=== PATIENT | female | born 1995 | race Caucasian/White ===

== ENCOUNTER 2018-04-22 04:56 | Emergency (ER) | payer BC ==
[2018-04-22] MEDS ORDERED: Sodium Chloride 0.9% 1,000 ML IV ONE ×2 (05:37→06:24)
[2018-04-22] MEDS ORDERED: Ondansetron 4 MG/2 ML SDV IV ONE (05:37)
--- NOTE | 2018-04-22 05:49 | EDM.PDOC ---
<Israel Ayala - Last Filed: 04/22/18 05:45> ED HPI GENERAL MEDICAL PROBLEM - General Chief Complaint: Abdominal Pain Time Seen by Provider: 04/22/18 05:45 Source of Information: Reports: Patient, RN Notes Reviewed History Limitations: Reports: No Limitations - History of Present Illness INITIAL COMMENTS - FREE TEXT/NARRATIVE: pt sent from OB for vomiting. mother states pt @ 25 weeks. mother states she herself also had this during her . Abdominal Pain Score (Numeric/FACES): 8 - Related Data Allergies Allergy/AdvReac Type Severity Reaction Status Date / Time amoxicillin Allergy Rash Verified 04/22/18 05:29 Sulfa (Sulfonamide Allergy Rash Verified 04/22/18 05:29 Antibiotics) Home Meds: Home Meds . [No Known Home Meds] 04/22/18 [History] Social & Family History - Tobacco Use Smoking Status *Q: Never Smoker Second Hand Smoke Exposure: No - Caffeine Use Caffeine Use: Reports: Coffee - Recreational Drug Use Recreational Drug Use: No ED ROS GENERAL - Review of Systems Review Of Systems: ROS reveals no pertinent complaints other than HPI. ED EXAM, GI/ABD - Physical Exam Exam: See Below Exam Limited By: No Limitations General Appearance: Alert, WD/WN, Mild Distress, Active Emesis Ears: Hearing Grossly Normal Throat/Mouth: Normal Voice, No Airway Compromise Head: Atraumatic Neck: Non-Tender, Full Range of Motion Respiratory/Chest: No Respiratory Distress Cardiovascular: Regular Rate, Rhythm GI/Abdominal Exam: Tender, Other (epiG discomfort). No: Distended, Guarding, Rigid, Rebound Neurological: Alert, Oriented, Normal Cognition, Normal Gait, No Motor/Sensory Deficits Psychiatric: Other (upset) Skin Exam: Warm, Dry, Normal Color Lymphatic: No Adenopathy Course - Vital Signs Last Recorded V/S: Last Vital Signs Temp 98.5 F 04/22/18 05:29 Pulse 56 L 04/22/18 05:29 Resp 16 04/22/18 05:29 BP 100/65 04/22/18 05:29 Pulse Ox 100 04/22/18 05:29 - Orders/Labs/Meds Labs: Laboratory Tests 04/22/18 04/22/18 Range/Units 05:31 05:31 WBC 10.8 H (5.0-10.0) 10^3/uL RBC 3.37 L (4.2-5.4) 10^6/uL Hgb 10.5 L (12.0-16.0) g/dL Hct 30.4 L (37.0-47.0) % MCV 90.2 (80-100) fL MCH 31.2 (27.0-34.0) pg MCHC 34.5 (33.0-35.0) g/dL Plt Count 176 (150-450) 10^3/uL Neut % (Auto) 86.4 H (42.2-75.2) % Lymph % (Auto) 9.8 L (20.5-50.1) % [place] % (Auto) 3.6 (2-8) % Eos % (Auto) 0.1 L (1.0-3.0) % Baso % (Auto) 0.1 (0.0-1.0) % Sodium 135 (135-145) mmol/L Potassium 3.4 L (3.6-5.0) mmol/L Chloride 105 (101-111) mmol/L Carbon Dioxide 21.0 (21.0-31.0) mmol/L Anion Gap 12.4 BUN 6 L (7-18) mg/dL Creatinine 0.6 (0.6-1.3) mg/dL Est Cr Clr Drug Dosing 121.66 mL/min Estimated GFR (MDRD) > 60 BUN/Creatinine Ratio 10.00 Glucose 89 (74-105) mg/dL Calcium 8.3 L (8.4-10.2) mg/dl Total Bilirubin 0.5 (0.2-1.0) mg/dL AST 19 (10-42) IU/L ALT 13 (10-60) IU/L Alkaline Phosphatase 43 (42-121) IU/L Total Protein 6.7 (6.7-8.2) g/dl Albumin 3.2 (3.2-5.5) g/dl Globulin 3.5 Albumin/Globulin Ratio 0.91 Meds: Medications Discontinued Medications Generic Name Dose Route Start Last Admin Trade Name Freq PRN Reason Stop Dose Admin Sodium Chloride 1,000 mls @ 999 mls/hr 04/22/18 05:37 04/22/18 05:39 Normal Saline IV 04/22/18 06:37 999 mls/hr .BOLUS ONE Administration Sodium Chloride 1,000 mls @ 999 mls/hr 04/22/18 06:24 04/22/18 06:31 Normal Saline IV 04/22/18 07:24 999 mls/hr .BOLUS ONE Administration Ondansetron HCl 4 mg 04/22/18 05:37 04/22/18 05:40 Zofran IV 04/22/18 05:38 4 mg ONETIME ONE Administration Promethazine HCl 25 mg 04/22/18 06:24 04/22/18 06:32 Phenergan IM 04/22/18 06:25 25 mg ONETIME ONE Administration Departure - Departure Disposition: Home, Self-Care 01 Clinical Impression: Hyperemesis gravidarum - Discharge Information Instructions: Eating Plan for Hyperemesis Gravidarum, Morning Sickness, Easy-to -Read, Hyperemesis Gravidarum Referrals: Carlos Ordonez MD [Primary Care Provider] - Forms: ED Department Discharge Additional Instructions: Sips of fluids frequently Follow up with your primary care facility RX: Metoclopramide <Shani More - Last Filed: 04/22/18 08:26> Departure - Departure Time of Disposition: 08:18 Condition: Fair - Discharge Information *PRESCRIPTION DRUG MONITORING PROGRAM REVIEWED*: No *COPY OF PRESCRIPTION DRUG MONITORING REPORT IN PATIENT SHAUNA: No
[2018-04-22 05:58] LABS: ANION GAP 12.4; CHLORIDE,CL 105 mmol/L (101-111); SODIUM,NA 135 mmol/L (135-145)
[2018-04-22] MEDS ORDERED: Promethazine 25 MG/ML SDV IM ONE (06:24)
== END 2018-04-22 08:36 | disposition home or self-care (01) ==
LOC: DL.ED 04:56 → DL.OBCHECK 04:56 → EDSTATUS 05:25 → DL.ED 08:36
DX: O21.0 Mild hyperemesis gravidarum (principal); Z3A.25 25 weeks gestation of pregnancy; Z88.1 Allergy status to other antibiotic agents; Z88.2 Allergy status to sulfonamides
CPT/HCPCS: 36415; 80053; 85025; 96361; 96372; 96374; 99284; J2405; J2550; J7030

== ENCOUNTER 2019-05-19 19:56 | Emergency (ER) | payer BC ==
[2019-05-19] MEDS ORDERED: Ondansetron 4 MG/2 ML SDV IV ONE (20:58)
[2019-05-19] MEDS ORDERED: Sodium Chloride 0.9% 1,000 ML IV ONE (21:01)
--- NOTE | 2019-05-19 21:04 | EDM.PDOC ---
ED HPI GENERAL MEDICAL PROBLEM - General Chief Complaint: Gastrointestinal Problem Stated Complaint: HEAD ACHE, STOMACH PAIN, WEAK Time Seen by Provider: 05/19/19 21:02 Source of Information: Reports: Patient History Limitations: Reports: No Limitations - History of Present Illness INITIAL COMMENTS - FREE TEXT/NARRATIVE: onset vomiting & abd pain since noon. ate hash brown and eggs prior. no diarrhoea. 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 Vomited after ingesting Middle Abdomen Pain Score (Numeric/FACES): 10 - Related Data Allergies Allergy/AdvReac Type Severity Reaction Status Date / Time amoxicillin Allergy Unknown Rash Verified 05/19/19 20:25 Sulfa (Sulfonamide Allergy Unknown Rash Verified 05/19/19 20:25 Antibiotics) Home Meds: Home Meds Norgestimate-Ethinyl Estradiol [Annita 0.25-0.035 mg Tablet] 1 tab PO DAILY [History] Past Medical History - Past Health History Medical/Surgical History: Denies Medical/Surgical History HEENT History: Reports: None Cardiovascular History: Reports: None Respiratory History: Reports: None Gastrointestinal History: Reports: None Genitourinary History: Reports: None 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: Musculoskeletal History: Reports: None Neurological History: Reports: Migraines Psychiatric History: Reports: Anxiety Endocrine/Metabolic History: Reports: None Hematologic History: Reports: None Immunologic History: Reports: None Oncologic (Cancer) History: Reports: None Dermatologic History: Reports: None - Infectious Disease History Infectious Disease History: Reports: None - Past Surgical History Head Surgeries/Procedures: Reports: None HEENT Surgical History: Reports: Oral Surgery Other HEENT Surgeries/Procedures: wisdom teeth Neurological Surgical History: Reports: None Social & Family History - Family History Family Medical History: Noncontributory Cardiac: Reports: Hypertension Endocrine/Metabolic: Reports: Diabetes, Type I Oncologic: Reports: Breast - Tobacco Use Smoking Status *Q: Never Smoker Second Hand Smoke Exposure: No - Caffeine Use Caffeine Use: Reports: Coffee, Soda, Tea - Recreational Drug Use Recreational Drug Use: No ED ROS GENERAL - Review of Systems Review Of Systems: ROS reveals no pertinent complaints other than HPI. ED EXAM, GI/ABD - Physical Exam Exam: See Below Exam Limited By: No Limitations General Appearance: Alert, WD/WN, Mild Distress, Active Emesis, Other ( discomfort, tearful) Ears: Hearing Grossly Normal Throat/Mouth: Normal Voice, No Airway Compromise Head: Atraumatic Neck: Non-Tender, Full Range of Motion Respiratory/Chest: No Respiratory Distress Cardiovascular: Regular Rate, Rhythm GI/Abdominal Exam: Guarding, Tender, Other (periumb> RLQ & RUQ). No: Distended , Rigid, Rebound Neurological: Alert, Oriented, Normal Cognition, Normal Gait, No Motor/Sensory Deficits Psychiatric: Tearful Skin Exam: Warm, Dry, Normal Color Lymphatic: No Adenopathy Course - Vital Signs Last Recorded V/S: Last Vital Signs Temp 36.6 C 05/19/19 20:27 Pulse 55 L 05/19/19 20:27 Resp 18 05/19/19 20:27 BP 109/63 05/19/19 20:27 Pulse Ox 100 05/19/19 20:27 - Orders/Labs/Meds Labs: Laboratory Tests 05/19/19 05/19/19 05/19/19 Range/Units 20:32 20:32 20:47 WBC 11.9 H (5.0-10.0) 10^3/uL RBC 4.33 (4.2-5.4) 10^6/uL Hgb 12.5 D (12.0-16.0) g/dL Hct 36.1 L (37.0-47.0) % MCV 83.4 (80-100) fL MCH 28.9 (27.0-34.0) pg MCHC 34.6 (33.0-35.0) g/dL Plt Count 222 (150-450) 10^3/uL Neut % (Auto) 92.2 H (42.2-75.2) % Lymph % (Auto) 4.9 L (20.5-50.1) % [place] % (Auto) 2.8 (2-8) % Eos % (Auto) 0.0 L (1.0-3.0) % Baso % (Auto) 0.1 (0.0-1.0) % Sodium (135-145) mmol/L Potassium (3.6-5.0) mmol/L Chloride (101-111) mmol/L Carbon Dioxide (21.0-31.0) mmol/L Anion Gap BUN (7-18) mg/dL Creatinine (0.6-1.3) mg/dL Est Cr Clr Drug Dosing mL/min Estimated GFR (MDRD) BUN/Creatinine Ratio Glucose (74-105) mg/dL Lactic Acid (0.5-2.2) mmol/L Calcium (8.4-10.2) mg/dl Total Bilirubin (0.2-1.0) mg/dL AST (10-42) IU/L ALT (10-60) IU/L Alkaline Phosphatase (42-121) IU/L Total Protein (6.7-8.2) g/dl Albumin (3.2-5.5) g/dl Globulin Albumin/Globulin Ratio Amylase (28-100) U/L Lipase (22-51) U/L Urine Color Yellow (YELLOW) Urine Appearance Clear (CLEAR) Urine pH 5.5 (5.0-9.0) Ur Specific [place] >= 1.030 (1.005-1.030) Urine Protein 30 H (NEGATIVE) Urine Glucose (UA) Negative (NEGATIVE) Urine Ketones >=160 H (NEGATIVE) Urine Occult Blood Negative (NEGATIVE) Urine Nitrite Negative (NEGATIVE) Urine Bilirubin Small H (NEGATIVE) Urine Urobilinogen 0.2 (0.2-1.0) mg/dL Ur Leukocyte Esterase Negative (NEGATIVE) Urine RBC 0-5 /HPF Urine WBC 0-5 (0-5/HPF) /HPF Ur Epithelial Cells Many H (NOT SEEN) /HPF Urine Bacteria Moderate H (0-FEW/HPF) /HPF Urine Mucus Many H (NOT SEEN) /LPF Urine HCG, Qual Negative 05/19/19 05/19/19 05/19/19 Range/Units 20:47 20:47 20:47 WBC (5.0-10.0) 10^3/uL RBC (4.2-5.4) 10^6/uL Hgb (12.0-16.0) g/dL Hct (37.0-47.0) % MCV (80-100) fL MCH (27.0-34.0) pg MCHC (33.0-35.0) g/dL Plt Count (150-450) 10^3/uL Neut % (Auto) (42.2-75.2) % Lymph % (Auto) (20.5-50.1) % [place] % (Auto) (2-8) % Eos % (Auto) (1.0-3.0) % Baso % (Auto) (0.0-1.0) % Sodium 138 (135-145) mmol/L Potassium 3.7 (3.6-5.0) mmol/L Chloride 105 (101-111) mmol/L Carbon Dioxide 22.0 (21.0-31.0) mmol/L Anion Gap 14.7 BUN 12 (7-18) mg/dL Creatinine 0.8 (0.6-1.3) mg/dL Est Cr Clr Drug Dosing 90.47 mL/min Estimated GFR (MDRD) > 60 BUN/Creatinine Ratio 15.00 Glucose 115 H (74-105) mg/dL Lactic Acid 0.9 (0.5-2.2) mmol/L Calcium 8.9 (8.4-10.2) mg/dl Total Bilirubin 1.1 H (0.2-1.0) mg/dL AST 18 (10-42) IU/L ALT 17 (10-60) IU/L Alkaline Phosphatase 46 (42-121) IU/L Total Protein 7.7 (6.7-8.2) g/dl Albumin 4.4 (3.2-5.5) g/dl Globulin 3.3 Albumin/Globulin Ratio 1.33 Amylase 64 (28-100) U/L Lipase 28 (22-51) U/L Urine Color (YELLOW) Urine Appearance (CLEAR) Urine pH (5.0-9.0) Ur Specific [place] (1.005-1.030) Urine Protein (NEGATIVE) Urine Glucose (UA) (NEGATIVE) Urine Ketones (NEGATIVE) Urine Occult Blood (NEGATIVE) Urine Nitrite (NEGATIVE) Urine Bilirubin (NEGATIVE) Urine Urobilinogen (0.2-1.0) mg/dL Ur Leukocyte Esterase (NEGATIVE) Urine RBC /HPF Urine WBC (0-5/HPF) /HPF Ur Epithelial Cells (NOT SEEN) /HPF Urine Bacteria (0-FEW/HPF) /HPF Urine Mucus (NOT SEEN) /LPF Urine HCG, Qual Meds: Medications Discontinued Medications Generic Name Dose Route Start Last Admin Trade Name Freq PRN Reason Stop Dose Admin Hydromorphone HCl 1 mg 05/19/19 23:58 Dilaudid IVPUSH 05/19/19 23:59 ONETIME ONE Sodium Chloride 1,000 mls @ 999 mls/hr 05/19/19 21:01 05/19/19 21:07 Normal Saline IV 05/19/19 22:01 999 mls/hr .BOLUS ONE Administration Iopamidol 75 ml 05/19/19 22:02 05/19/19 22:23 Isovue-300 (61%) IVPUSH 05/19/19 22:03 75 ml ONETIME ONE Administration Morphine Sulfate 2 mg 05/19/19 21:59 05/19/19 22:06 Morphine IVPUSH 05/19/19 22:00 2 mg ONETIME ONE Administration Ondansetron HCl 4 mg 05/19/19 20:58 05/19/19 21:08 Zofran IV 05/19/19 20:59 4 mg ONETIME ONE Administration - Re-Assessments/Exams Free Text/Narrative Re-Assessment/Exam: 05/20/19 00:[address] Whitt surgeon @ who kindly accepted pt. Departure - Departure Time of Disposition: 00:05 Disposition: DC/Tfer to Acute Hospital 02 Condition: Good Clinical Impression: Appendicitis - Discharge Information Forms: Interfacility Transfer EMTALA
[2019-05-19 21:13] LABS: ANION GAP 14.7; CHLORIDE,CL 105 mmol/L (101-111); SODIUM,NA 138 mmol/L (135-145)
[2019-05-19] MEDS ORDERED: Morphine 2 MG/ML Syringe IVPUSH ONE (21:59)
[2019-05-19] MEDS ORDERED: Iopamidol 612 MG/ML 75 ML Bottle IVPUSH ONE (22:02)
[2019-05-19] MEDS ORDERED: HYDROmorphone 1 MG/ML Syringe IVPUSH ONE (23:58)
[2019-05-20] MEDS ORDERED: LORazepam 2 MG/ML Syringe IVPUSH ONE (00:52)
== END 2019-05-20 01:02 ==
LOC: DL.ED 19:56
DX: K37 Unspecified appendicitis (principal); Z88.0 Allergy status to penicillin; Z88.2 Allergy status to sulfonamides
CPT/HCPCS: 36415; 74177; 80053; 81001; 81025; 82150; 83605; 83690; 85025; 96361; 96374; 96375; 99285; J1170; J2060; J2270; J2405; J7030; Q9967

== ENCOUNTER 2020-04-20 21:59 | Inpatient (IN) | payer BC ==
--- NOTE | 2020-04-20 19:49 | PCM.SN.2 ---
- Free Text/Narrative Note: 04/20/2020 Destiny presents for SROM. Hear a pop and felt a gush of clear fluid at 1900. No regular contractions. No blood. Good movement. Normal managed by Dr. Garrido. No other complaints. Reports last delivery 6 hours post ROM and 3 hrs after contractions started. prior vaginal delivery in 2018 at 37+ weeks gestation. Patient's last menstrual period was 08/21/2019 (within days). BERRY is 05/27/2020, by Last Menstrual Period EGA today is 34w5d. Past Medical History: Diagnosis Date Acne Migraine headache Patient Active Problem List Diagnosis Date Noted Maternal anemia in , antepartum, third trimester 03/13/2020 Overview Note: hgb mildly low (10.6) and recommend over the counter iron sulfate 325 mg daily 03/13/2020 care in third trimester 09/30/2019 Anxiety 05/18/2019 Past Surgical History: Procedure Laterality Date LAPAROSCOPY APPENDECTOMY ADULT 05/20/2019 Family History Problem Relation Age of Onset Hypertension Cousin Diabetes Cousin grandparent Breast Cancer Cousin grandparent Anesth Problems Neg Hx Bleeding Prob Neg Hx Clotting Disorder Neg Hx Defects Neg Hx Social History Social History Narrative Lives in [place] recently moved back 05/2018 and lives with Davon Shi. 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 works at [employer] in [place]. Medications: Iron 325mh daily. vitamin daily. TUMS PRN for heartburn. Allergies: Sulfa. Objective: LMP 08/21/2019 (Within Days) BP 122/81, Pulse 117, RR 18, Temp 99.8 General: Alert, pleasant, cooperative. Neck: supple no adenopathy. Heart: regular no murmur. Lungs: CTA bilaterally. Abd: Soft, non-tender. Uterine size consistent with dates. FHT 155. Category 1. Contractions Q 1.5-2 mins. Cervix: 3cm/50%/-1, fluid clear. Neurological: No focal neurological deficits. Deep tendon reflexes 2+ and equal. No clonus. Psychiatric: Alert and oriented x3. Mood and affect appropriate. Happy about the . Skin: warm, dry, appropriate for race. Covid: negative Amnisure: positive UA: Protein 30. Trace blood. Negative LE and Nitrates. CBC: WBCs 17.6, Hgb 12.2, Plts 187. US Per tech: HARSHA 15. Cephalic. Anterior placenta. Assessment: 24 y.o. at 34w5d presenting for new OB visit. 1. premature rupture of membranes. 2. Anemia of . 3. Anxiety Plan: IVF, betamethasone, PCN started. GBS, amnisure, CBC, Covid and US obtained. Transfer to [place] is not appropriate since she has a history of quick labor and shalom every 1.5-2 minutes. Ambulance not available for at least [address] Lopez who agrees with my treatment and plan for need to deliver locally with NICU called for delivery to attend to the baby.
[2020-04-20] MEDS: Lactated Ringers 1,000 ML IV ONE ×2 (20:00→21:13)
--- NOTE | 2020-04-20 20:24 | US ---
PROCEDURE INFORMATION: Exam: US , Limited Exam date and time: 04/20/2020 7:55 PM Age: 24 years old Clinical indication: Lmp or gestational age (in weeks): 34w 5d; Antepartum complications; Other: ? Prom; ; Additional info: R/O prom TECHNIQUE: Imaging protocol: Real-time ultrasound of the maternal uterus with image documentation. Exam focused on the clinical indication. COMPARISON: CT Abdomen Pelvis w Cont 05/19/2019 10:42 PM FINDINGS: Gestation: Single intrauterine . heart rate: heart rate 167-181 bpm. Presentation: Cephalic presentation. Placenta: Posterior placenta. Amniotic fluid: Amniotic fluid volume normal. Amniotic fluid index: HARSHA 15.8 cm. IMPRESSION: Normal fluid volume.
[~2020-04-20 21:59] MED LIST: Acetaminophen 325 MG Tab PO PRN; Betamethasone Acetate/Betamethasone Sod Phosphate 30 MG/5 ML MDV IM ONE; Carboprost Tromethamine 250 MCG/1 ML Amp IM PRN; Lactated Ringers 1,000 ML IV ONE; Lactated Ringers 1,000 ML IV SCH; Lactated Ringers 500 ML IV SCH; Lidocaine 1% 30 ML SDV INJECT PRN; Methylergonovine 0.2 MG/1 ML Amp IM PRN; Misoprostol 400 MCG (4 X 100 MCG TAB) RECTAL PRN; Naloxone 2 MG/2 ML Syringe IVPUSH PRN; Ondansetron 4 MG/2 ML SDV IVPUSH PRN; Oxytocin/Normal Saline 30 UNIT/500 ML BAG IV SCH; Penicillin G Potassium 5 MILLUNITS in Sodium Chloride 0.9% 100 ML IV ONE; Promethazine 25 MG/ML SDV IM PRN; Sodium Chloride 0.9% 1,000 ML IV SCH; Sodium Chloride 0.9% 10 ML Syringe FLUSH PRN; Tranexamic Acid 1,000 MG in Sodium Chloride 0.9% 100 ML IV PRN; ePHEDrine 50 MG/ML SDV IVPUSH PRN; fentaNYL 100 MCG/2 ML SDV IVPUSH PRN
[2020-04-20] MEDS ORDERED: fentaNYL 100 MCG/2 ML SDV ONE (23:21)
[2020-04-20] MEDS ORDERED: EPINEPHrine 1 MG/1 ML Amp ONE (23:21)
--- NOTE | 2020-04-20 23:53 | PCM.PRNOTE ---
- Free Text/Narrative Note: Requested to provide analgesia to full term patient in severe pain. Upon entering the room, patient is sitting on edge of bed complaining of severe abdominal/pelvic pain and discomfort. Procedure was discussed with patient including adverse outcomes and expectations. Pt consented to analgesia, SAB/IT. Pt placed into a proper sitting position. Landmarks for SAB/IT were identified and marked. Hands were washed and appropriate PPE was applied. Back was prepped with betadine x3. A sterile, transparent, fenestrated drape was applied. Excess betadine was removed. Using 3 mL of a 1% lidocaine solution, a skin wheel was placed at the L2/L3 interspace. A 24 ga (4 inch) Pencan spinal needle was inserted until positive for CSF. Negative for heme or paresthesias. Injected fentanyl 30 mcg, sufentanil 25 mcg, and 7.5 mg of a 0.75% bupivacaine solution with an epi wash. Pt was placed left lateral position for approximately 20 minutes. There were zero complications or adverse outcomes. Will continue to monitor. Procedure Date & Time: 04/20/2020 [id number]
[2020-04-21] MEDS ORDERED: Penicillin G Potassium 3 MILLUNITS in Sodium Chloride 0.9% 100 ML IV ONE ×2
[2020-04-21] MEDS ORDERED: Simethicone 80 MG Tab.Chew PO PRN (02:02)
[2020-04-21] MEDS ORDERED: Ibuprofen 800 MG Tab PO PRN (02:02)
[2020-04-21] MEDS ORDERED: Benzocaine/Menthol 20%-0.5% Spray 56 GM Canister TOP PRN (02:02)
[2020-04-21] MEDS ORDERED: Docusate Sodium 100 MG Cap PO PRN (02:02)
--- NOTE | 2020-04-21 03:01 | DEL ---
DATE: 04/21/2020 PREPROCEDURE DIAGNOSES: 1. rupture of membranes. 2. Intrauterine at 34-6/7 weeks' gestation. 3. Anemia of . 4. Group B strep status unknown. 5. Anxiety history. POSTPROCEDURE DIAGNOSES: 1. rupture of membranes. 2. Intrauterine at 34-6/7 weeks' gestation. 3. Anemia of . 4. Group B strep status unknown. 5. Anxiety history. 6. Status post spontaneous vaginal delivery without complications. BRIEF HISTORY: A 24-year-old female reported to the hospital reporting a large gush of clear amniotic fluid and hearing a pop at around 1900 hours on 04/20/2020. She was confirmed to have spontaneous rupture of membranes. COVID test negative. Admission hemoglobin of 12.2, platelets of 187. Urinalysis negative for urinary tract infection. Positive AmniSure. Ultrasound with baby being cephalic and HARSHA of 15. History of delivery with her last child 6 hours after spontaneous rupture and she was shalom every minute and a half to 2 minutes and 3 cm dilated. I discussed the case with Dr. Lopez, INSTALLATION DRAFTER on-call at [place], and she agreed that transfer of this patient was too high risk given her history of fast labor, so the patient remained here at [facility] and was given a dose of betamethasone, started on penicillin and IV fluids, and allowed to progress through labor. She had nitrox early on for pain relief followed by 1 dose of fentanyl and an intrathecal. She went on to an uncomplicated vaginal delivery as outlined below. Intensive Care Nursery team was called and present at time of delivery to attend to the baby. DETAILS: With the patient in dorsal lithotomy position, she delivered a viable male over intact perineum. Baby had a strong lusty cry and was dried, stimulated, and placed upon mother's abdomen. After a delay, 3-vessel umbilical cord was doubly clamped and cut, and cord blood sample obtained, and will be sent to the hospital that the baby is being transferred to. Placenta was delivered by gentle cord traction and concomitant uterine massage, inspected, and intact. Appeared mature with no obvious problems. Labia and vagina were inspected and there were some superficial lacerations on the labia and a small abrasion in the perineum, none of which needed repair and all were hemostatic. The patient had tolerated the delivery well and there were no complications. Baby's scores are 9 and 9. His weight 3100 g, 6 pounds 13 ounces, head circumference 13.2 inches, chest 12.8 inches, and length 20 inches. ESTIMATED BLOOD LOSS: 200 mL. DISPOSITION: Mother to remain here at the hospital until her intrathecal wears off and she is voiding and ambulating well after which time I anticipate she will be getting discharged to go to [place] to be with her baby. She does plan on . [facility] /[id number] MTDD
[2020-04-21] MEDS ORDERED: diphenhydrAMINE 25 MG Tab PO ONE (03:05)
[2020-04-21] MEDS ORDERED: Betamethasone Acetate/Betamethasone Sod Phosphate 30 MG/5 ML MDV IM ONE (06:29)
[2020-04-21] MEDS ORDERED: fentaNYL 100 MCG/2 ML SDV ITHECAL ONE (06:29)
[2020-04-21] MEDS ORDERED: EPINEPHrine 1 MG/1 ML Amp ONE (06:29)
[2020-04-21] MEDS ORDERED: Prenatal Multivitamin with Calcium/Folic Acid/Iron Tab PO SCH (09:00)
--- NOTE | 2020-04-22 12:59 | DISCH ---
ADMITTING DIAGNOSES: 1. rupture of membranes at 34 and 5/7 weeks' gestation. 2. Anemia of . 3. Group B streptococcus status unknown. 4. Anxiety history. DISCHARGE DIAGNOSES: 1. Status post spontaneous vaginal delivery without complications at 34 and 6/7 weeks' gestation. 2. Anemia of . 3. Group B streptococcus status unknown. 4. Anxiety history. 5. Delivery of a viable male . score of 9 and 9, weight 3,100 g. He was transferred to the Intensive Care Unit for distress of a premature . BRIEF HISTORY: A 24-year-old female reporting to the hospital 6 hours prior to delivery, reporting hearing a pop and feeling a large gush of fluid. She was confirmed to have spontaneous rupture of membranes. Admission hemoglobin excellent to 12.2, platelets of 187. Rapid COVID test was negative. She was shalom every minute and a half to 2 minutes and already 3 cm dilated, verified with CHILDRENS CLUB ATTENDANT that transfer was not appropriate and instead notified the NICU team to present prior to arrival, so that they could be here to assist us if we had any problems and they arrived approximately 5 to 10 minutes before and essentially took care of the child right away after he was born. Delivery was spontaneous vaginal. She had some superficial labial and perineal lacerations, none of which needed any repair and she tolerated things quite well after her intrathecal wore off and she was voiding and ambulating without any difficulties, and her bleeding was verified to be controlled. She was allowed to be discharged home to travel to [place] to be with her baby. DISCHARGE MEDICATIONS: Ibuprofen 800 mg every 8 hours as needed for pain and Tylenol 650 mg every 6 hours as needed for pain. DISCHARGE INSTRUCTIONS: Normal post vaginal delivery instructions were provided and she should follow up with her regular doctor in 6 weeks, sooner if any problems or concerns. [facility] /[id number]
== END 2020-04-21 06:30 | disposition home or self-care (01) | DRG 560 ==
LOC: DL.OBCHECK 21:59 → DL.OB 22:05 → OBSVTOIN 04-21 01:05
PROVIDERS: ADMIT Family Medicine; ATTEND Family Medicine
PROC: 10E0XZZ Delivery of Products of Conception, External Approach (ICD-10-PCS; principal; 2020-04-21)
PROC: 3E0R3BZ Introduction of Anesthetic Agent into Spinal Canal, Percutaneous Approach (ICD-10-PCS; 2020-04-21)
DX: O60.14X0 Preterm labor third trimester with preterm delivery third trimester, not applicable or unspecified (principal); Z3A.34 34 weeks gestation of pregnancy; Z37.0 Single live birth; O99.02 Anemia complicating childbirth; D64.9 Anemia, unspecified; Z20.828 Contact with and (suspected) exposure to other viral communicable diseases; O70.0 First degree perineal laceration during delivery
CPT/HCPCS: 01967; 36415; 59409; 76815; 81003; 84112; 85027; 87081; A9270-GY; J0171; J0702; J2405; J2540; J2590; J3010; J7050; J7120; U0002